=== PATIENT | female | born 1980 | race Caucasian/White ===

== ENCOUNTER → 2017-09-19 | Day surgery (SDC) | payer BC ==
[2017-09-19 11:34] VITALS: RESP 16; BMI 33.9
[2017-09-19 13:19] VITALS: BP 106/71; PULSE 64; TEMP 98.5
--- NOTE | 2017-09-19 13:44 | USB ---
EXAMINATION TYPE: US biopsy breast VAD LT DATE OF EXAM: 09/19/2017 CLINICAL HISTORY: R92.8 Abn mammo. TECHNIQUE: Ultrasound guided core biopsy of left breast. COMPARISON: Prior imaging performed at an outside facility. FINDINGS: The procedure of ultrasound guided core biopsy was explained to the patient. Benefits, alternatives, and risks were discussed. An informed consent was then obtained. Preprocedural timeout was performed. The patient was placed in supine positioning for imaging and for the procedure. Preprocedural scanning demonstrated a 1.8 x 1.2 x 2.3 cm gently lobulated oval hypoechoic mass with well-defined margins at the 1:00 position in zone a of the left breast. Additional 1.2 x 0.6 x 1.2 cm hypoechoic mass with a similar echogenicity is antiparallel and upon real-time scanning demonstrates more smoothly lobulated border such as on image 11 rather than the more angulated borders demonstrated on some images. This is seen at 12:00 within the left breast, 5 cm from the nipple in zone A. Given the smoothly marginated borders on real-time scanning and similar echogenicity to the larger lesion discussion was had with the patient to biopsy the larger mass and closely follow the second mass pending the pathologic results of the larger mass biopsy. The overlying skin was prepped and draped in usual sterile fashion. 10 cc of lidocaine buffered with bicarbonate was used as anesthetic into the skin and subcutaneous tissue up to the 2.3 cm mass at the 1:00 position within the left breast. Under ultrasound guidance, a 12-gauge vacuum assisted biopsy gun device was used to obtain 4 core samples. Following this, a biopsy marker was left in lesion, well visualized sonographically and therefore no postprocedural mammogram was performed in this patient. The patient tolerated the procedure well without any immediate complication. The patient was kept in the radiology department for short stay after the procedure and then discharged home in stable condition. IMPRESSION: Successful, uncomplicated ultrasound guided core biopsy of a 2.3 cm mass at the 1:00 position within the left breast, full pathology results to follow. Recommendation for the second smaller mass at the 12:00 position will be made upon radiologic/pathologic correlation. Pathology Results: Benign BREAST, LEFT, CORE BIOPSY: FIBROADENOMA Recommendation Follow up ultrasound of the left breast in 6 months. DEVANG
== END ==
LOC: RADUSWWP 10:38
PROVIDERS: ATTEND Surgery
DX: D24.2 Benign neoplasm of left breast (principal)
CPT/HCPCS: 88305; 19083; A4648; J2001

== ENCOUNTER → 2019-08-24 | Outpatient (CLI) | payer BC | END | disposition home or self-care (01) | LOC: LABWHC1 12:32 | PROVIDERS: ATTEND Midwife | DX: Z13.228 Encounter for screening for other metabolic disorders (principal) | CPT/HCPCS: 36415; 84443; 86376 ==

== ENCOUNTER → 2024-06-14 | Outpatient (CLI) | payer BC ==
--- NOTE | 2024-06-14 12:20 | CT ---
EXAMINATION TYPE: CT abdomen pelvis wo con DATE OF EXAM: 06/14/2024 COMPARISON: None CLINICAL INDICATION: Female, 44 years old with history of R31.9 HEMATURIA, UNSPECIFIED; PHH, LEFT FLA NK PAIN/HEMATURIA TECHNIQUE: CT scan of the abdomen and pelvis is performed without oral or IV contrast. CT DLP: [address] CTDI: mGy Automated exposure control for dose reduction was used. FINDINGS: Within the limitations of a non-contrast study, the following observations are made. The lungs are clear. Gallbladder is normal and there is no gallstone, wall thickening, pericholecystic fluid or distention . There is no biliary ductal dilatation. There is no organomegaly of the liver, pancreas, spleen or adrenal glands. There are no renal calcifications or hydronephrosis. The caliber of the abdominal aorta is normal and there is no retroperitoneal adenopathy or hemorrhage . The bowel loops are normal in caliber is no evidence of obstruction. No inflammatory changes are iden tified in the mesentery and there is no free intraperitoneal air or fluid. There is no pelvic mass, free fluid, abscess or adenopathy. There is mild diverticulosis of the colon without CT evidence of diverticulitis. The osseous structures and soft tissues are unremarkable. IMPRESSION: No significant abnormality seen. [facility], , 06/14/2024 12:18 PM
== END | disposition home or self-care (01) ==
LOC: RADCTMAIN 11:45
PROVIDERS: ATTEND Family Medicine
DX: R31.9 Hematuria, unspecified (principal); R10.9 Unspecified abdominal pain
CPT/HCPCS: 74176